=== PATIENT | female | born 1940 | race Caucasian/White ===

== ENCOUNTER → 2018-08-20 | Outpatient (CLI) | payer OTHER | LOC: M.ULTRA 14:00 | DX: N28.9 Disorder of kidney and ureter, unspecified (principal) ==

== ENCOUNTER 2019-09-15 13:06 | Inpatient (IN) | payer OTHER ==
[~2019-09-15] VITALS: Ht 172.7 cm; Wt 78.2 kg
--- NOTE | ~2019-09-15 | CON ---
[address] [address] CONSULTATION Name: MICHELLE VALERO Room: [address] IN M.R.#: [id number] Admission: 09/15/19 Attend Phys: Matt Ruiz Discharge: Date of : 42 Report #: [id number] THIS REPORT FOR: //name// cc: Gorge Dee Bruce R. DO ~ THIS REPORT FOR: //name// CC: Gorge Staples DATE OF SERVICE: 09/16/2019 NEPHROLOGY CONSULTATION CONSULTING PHYSICIAN: Dr. Matt Staples REASON FOR NEPHROLOGY CONSULTATION: Acute kidney injury and hypercalcemia. REASON FOR ADMISSION: Weakness, diarrhea and hypoglycemia. HISTORY OF PRESENT ILLNESS: This is a 78-year-old female with past medical history of Alzheimer's dementia, has a history of type 2 diabetes, hypertension, dyslipidemia, presented to the ER with altered mental status. EMS was called by the patient's daughter because the patient was weak at home and she had also been having diarrhea. When EMS arrived, her blood glucose was in 40s. She had a head CT done in the ER here showed a subacute CVA in left occipital and subinsular area. In addition, she was found to have a creatinine of 4.8. Her baseline creatinine is not known and a calcium was found to be 15.8. She was started on IV hydration with which her calcium and creatinine both are improving. She is awake this morning. She is oriented to place. She is oriented to year and she is oriented to self and looks like she does know who the president is, but is not able to tell me. She has been urinating. She has a Navarrete catheter which was placed yesterday in the ER and has had 1650 out overnight. She had a renal ultrasound, which was unremarkable. HOME MEDICATIONS: Include multivitamins, triamterene and hydrochlorothiazide, calcium and vitamin D3 as well as enalapril. She was also on metformin at home. I am not sure if she was taking any Tums or other calcium supplements or any NSAIDs. ALLERGIES: LATEX. REVIEW OF SYSTEMS: As mentioned in history of present illness, otherwise limited because of Alzheimer dementia. HOME MEDICATIONS: Include allopurinol, lovastatin, multivitamin, donepezil, [place] [address] CONSULTATION Name: MICHELLE VALERO Room: [address] IN .R.#: [id number] Admission: 09/15/19 Attend Phys: Matt Ruiz Discharge: Date of : 42 Report #: [id number] magnesium, enalapril, triamterene and hydrochlorothiazide, oxybutynin, duloxetine, aspirin, glimepiride, omega 3 fatty acids, calcium carbonate and vitamin D3. PAST MEDICAL AND SURGICAL HISTORY: Includes diabetes, hypertension, dyslipidemia, Alzheimer disease, left knee surgery. FAMILY HISTORY: Could not obtain from the patient. SOCIAL HISTORY: She lives at home, but we do not know much better social history. She does have a daughter. PHYSICAL EXAMINATION: VITAL SIGNS: Blood pressure is 107/44, respiratory rate is 17, pulse rate was 66, temperature was 35.7, pulse ox was 96%, she is on room air. GENERAL: She is awake and she is oriented to place, time and oriented to self. HEAD AND HEENT: Atraumatic, normocephalic. Normal conjunctivae. EARS, NOSE, AND THROAT: Normal ears and nose. Mucous membranes are dry. NECK: No JVD. CHEST: Bilateral diminished breath sounds posteriorly, but no crackles heard. CARDIOVASCULAR: S1, S2 normal. No murmur heard. ABDOMEN: Soft, nondistended, nontender. Bowel sounds are present. LOWER EXTREMITIES: There is no lower extremity edema. SKIN: Quite dry. Turgor is decreased. NEUROLOGICAL FUNCTION: She is moving all her extremities. She is not completely oriented. PSYCHIATRIC: Not able to assess. LABORATORY DATA: WBC 10.1, hemoglobin 12.8, platelet count is 233. Sodium 135, potassium 4.7, BUN is 46 and creatinine is 4.5, and PTH was 22. Lactic acid was 3.5, down to 2.8 and 25-hydroxy vitamin D was 61.6. CK was 36. Calcium was 15.8, now down to 13.7. Other labs are reviewed. IMAGING: Renal ultrasound, head CT and chest x-ray were reviewed. ASSESSMENT: 1. Acute kidney injury in the setting of intravascular volume depletion. She was hypotensive. She had hypercalcemia and she was on triamterene and hydrochlorothiazide at home along with enalapril. Her baseline creatinine is not known. We need to try to find that out but her creatinine was 4.8 on admission. UA only shows trace blood and renal ultrasound is within normal limits. 2. History of Alzheimer's dementia. I am not sure what her baseline mental status is like. 3. Subacute cerebrovascular accident, left occipital and subinsular. Primary team is managing that. [address] [address] CONSULTATION Name: MICHELLE VALERO Room: [address] IN [place].#: [id number] Admission: 09/15/19 Attend Phys: Matt Ruiz Discharge: Date of : 42 Report #: [id number] 4. Hypercalcemia. This is in the setting of intravascular volume depletion, use of hydrochlorothiazide, calcium, vitamin D3 supplements and multivitamins. 5. Hyperphosphatemia. This is in the setting of acute kidney injury. 6. Lactic acidosis because of metformin use at home and she was also hypotensive, it has been improving, it was 3.5 on admission. 7. Diarrhea at home. 8. History of hypertension, but mildly hypotensive. 9. Hypoglycemia because of prolonged circulation of oral hypoglycemic agents in the setting of renal insufficiency. PLAN: 1. With IV fluids, the calcium and creatinine are coming down, please try to find out her baseline creatinine and calcium levels. 2. Please decrease normal saline to 150 mL an hour. 3. Please change diet to renal diet. 4. Please avoid nephrotoxic agents and NSAIDs and continue to hold her multivitamin, triamterene/hydrochlorothiazide calcium, vitamin D3 as well as enalapril. 5. Strict I's and O's. 6. For hypercalcemia workup, I have further ordered 125 hydroxy vitamin D and a serum immunofixation, serum free light chain ratio and PTH related peptide. PTH was already reviewed 22 indicating this is not primary hyperparathyroidism and a 25-hydroxy vitamin D was 61, not in toxic range. 7. Check morning labs. We will continue to follow along with you. Echocardiogram was also reviewed Ejection fraction is 70% with grade 1 diastolic dysfunction. Discussed with the patient's nurses. By: 0941 [id number] Meza MD /nt
[2019-09-15] MEDS ORDERED: ALLOPURINOL 10100 M3 PO (13:26)
[2019-09-15] MEDS ORDERED: LOVASTATIN 20 M20 MG PO (13:26)
[2019-09-15] MEDS ORDERED: MAGNESIUM250 M1 PO (13:27)
[2019-09-15] MEDS ORDERED: MULTI VITAMIN1 EACH PO (13:27)
[2019-09-15] MEDS ORDERED: ARICEPT10 M1 PO (13:27)
[2019-09-15 13:28] VITALS: BP 117/47
[2019-09-15] MEDS ORDERED: VASOTEC5 MG PO (13:28)
[2019-09-15] MEDS ORDERED: OXYBUTYNIN 5 MG5 M2 PO (13:29)
[2019-09-15] MEDS ORDERED: TRIAMTERENE-HC1 EAC2 PO (13:29)
[2019-09-15] MEDS ORDERED: DRIZALMA SPRINK60 MG PO (13:29)
[2019-09-15] MEDS ORDERED: CHILDREN'S ASPI81 M1 PO (13:30)
[2019-09-15] MEDS ORDERED: AMARYL4 MG PO (13:30)
[2019-09-15] MEDS ORDERED: CALCIUM 600 +1 EAC8 PO (13:31)
[2019-09-15] MEDS ORDERED: FISH OIL 1,0001 EAC9 PO (13:31)
[2019-09-15 13:46] LABS: URINE BILIRUBIN NEGATIVE (Negative); URINE BLOOD TRACE (Negative); URINE CLARITY CLEAR; URINE COLOR YELLOW; URINE GLUCOSE-RANDOM NEGATIVE (Negative); URINE KETONES NEGATIVE (Negative); URINE LEUKOCYTES-REFLEX NEGATIVE (Negative); URINE NITRITE-REFLEX NEGATIVE (Negative); URINE PROTEIN NEGATIVE (Negative); URINE SPECIFIC GRAVITY 1.015 (1.005-1.030); URINE UROBILINOGEN 0.2 E.U./dl (0.2-1.0)
[2019-09-15 13:49] LABS: ABSOLUTE EOSINOPHILS 0.3 thou/uL (0.0-0.7); ABSOLUTE LYMPHOCYTES 1.4 thou/uL (0.8-5.3); ABSOLUTE MONOCYTES 0.5 thou/uL (0.0-1.2); BASOPHILS 0.3 %; HEMATOCRIT 38.7 % (37.0-47.0); HEMOGLOBIN 12.8 gm/dL (12.0-15.0); LYMPHOCYTES 13.5 %; MCH 31.9 pg (26.0-34.0); MCV 96.5 fL (80.0-100.0); MONOCYTES 4.7 %; NUCLEATED RBCS 0 /100WBC; PLATELET COUNT* 233 thou/uL (150-400); POLYS 78.5 %; RBC 4.01 mil/uL (4.20-5.00); RDW-CV 14.4 % (10.5-14.5); WBC 10.1 thou/uL (4.0-11.0)
[2019-09-15 13:54] LABS: APTT 26.3 Seconds (25.0-31.3)
[2019-09-15 14:06] LABS: ALBUMIN 3.6 g/dL (3.4-5.0); CREATININE 4.8 mg/dL (0.6-1.3); POTASSIUM 5.3 mmol/L (3.5-5.1); TOTAL BILIRUBIN 0.4 mg/dL (<0.1-1.0); TOTAL PROTEIN 7.4 g/dL (6.4-8.2)
[2019-09-15 14:08] LABS: CALCIUM 15.8 mg/dL (8.5-10.1)
[2019-09-15 15:11] VITALS: BP 111/55
[2019-09-15 15:29] LABS: CREATININE 4.7 mg/dL (0.6-1.3)
[2019-09-15 15:30] VITALS: BP 107/50
[2019-09-15 15:33] LABS: CALCIUM 14.5 mg/dL (8.5-10.1)
--- NOTE | 2019-09-15 15:41 | EKG ---
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
--- NOTE | 2019-09-15 16:22 | 2DMMODE ---
[place] [address] 2 D/M-MODE ECHOCARDIOGRAM Name: AJITMICHELLE HOOVER Room: [address] IN .R.#: [id number] Admission: 09/15/19 Attend Phys: Matt thomas Sa Discharge: Date of : 42 Date of Service: 09/15/19 1621 Report #: [id number] THIS REPORT FOR: cc: FAM - No family physician/PCP FAM - No family physician/PCP Angel Altman MD [facility] ~ APPROVED REPORT Study performed: 09/15/2019 15:26:22 EXAM: Comprehensive 2D, Doppler, and color-flow Echocardiogram Patient Location: In-Patient Room #: [facility] Status: routine BSA: 1.93 HR: 60 bpm BP: 107/50 mmHg Rhythm: NSR Other Information Study Quality: Good Indications CVA/TIA Echo Enhancing Agent Indication: Rule out Shunt Agent(s) / Amount(s) Used: Agitated Saline 10 cc 2D Dimensions IVSd: 13.45 (7-11mm) LVOT Diam: 20.42 (18-24mm) LVDd: 44.43 mm PWd: 10.41 (7-11mm) Ascending Ao: 30.60 (22-36mm) LVDs: 23.84 (25-40mm) Aortic Root: 33.32 mm Volumes Left Atrial Volume (Systole) LA ESV Index: 37.90 mL/m2 Aortic Valve AoV Peak Alexander.: 3.45 m/s AO Peak Gr.: 47.54 mmHg LVOT Max P.09 mmHg AO Mean Gr.: 30.49 mmHg LVOT Mean P.28 [place] [address] 2 D/M-MODE ECHOCARDIOGRAM Name: MARYLUMICHELLE E Room: [address] IN .R.#: [id number] Admission: 09/15/19 Attend Phys: Matt thomas Sa Discharge: Date of : 42 Date of Service: 09/15/19 1621 Report #: [id number] LVOT Max V: 1.01 m/s AO V2 VTI: 83.09 cm LVOT Mean V: 0.71 m/s KETURAH (VTI): 1.09 cm2 LVOT V1 VTI: 27.55 cm Mitral Valve MV Mean Gr.: 2.41 mmHg E/A Ratio: 0.73 MV Decel. Time: 359.17 ms MV E Max Alexander.: 0.84 m/s MV PHT: 104.16 ms MVA (PHT): 2.11 cm2 TDI E/Lateral E': 12.00 E/Medial E': 14.00 Medial E' Alexander.: 0.06 m/s Lateral E' Alexander.: 0.07 m/s Pulmonary Valve PV Peak Alexander.: 0.91 m/s PV Peak Gr.: 3.29 mmHg Tricuspid Valve RAP Estimate: 5.00 mmHg TR Peak Gr.: 23.54 mmHg RVSP: 28.00 mmHg PA Pressure: 28.00 mmHg Left Ventricle The left ventricle is normal size. There is normal LV segmental wall motion. Mild concentric left ventricular hypertrophy. Left ventricular systolic function is normal. LVEF is 70%. Grade I - abnormal relaxation pattern. Right Ventricle The right ventricle is normal size. The right ventricular systolic function is normal. Atria Left atrium is moderately dilated. The interatrial septum is intact with no evidence for an atrial septal defect. The right atrium size is normal. Aortic Valve Moderate aortic valve sclerosis. Trace aortic regurgitation. Moderate aortic stenosis. Mitral Valve Moderate mitral annular calcification. Mild mitral regurgitation. Mild to moderate [place] [address] 2 D/M-MODE ECHOCARDIOGRAM Name: MICHELLE VALERO Room: [address] IN ..#: [id number] Admission: 09/15/19 Attend Phys: Matt thomas Sa Discharge: Date of : 42 Date of Service: 09/15/19 1621 Report #: [id number] Tricuspid Valve The tricuspid valve is normal in structure. Trace tricuspid regurgitation. No pulmonary hypertension. Pulmonic Valve The pulmonary valve is normal in structure. There is no pulmonic valvular regurgitation. Great Vessels The aortic root is normal in size. IVC is normal in size and collapses >50% with inspiration. Pericardium There is no pericardial effusion. <Conclusion> The left ventricle is normal size. Mild concentric left ventricular hypertrophy. Left ventricular systolic function is normal. LVEF is 70%. Grade I - abnormal relaxation pattern. Left atrium is moderately dilated. Moderate aortic valve sclerosis. Trace aortic regurgitation. Moderate aortic stenosis. Mild mitral regurgitation. Trace tricuspid regurgitation. No pulmonary hypertension. The interatrial septum is intact with no evidence for an atrial septal defect. <ELECTRONICALLY SIGNED> By: Angel Altman MD, FACC 09/15/19 162 20 20 Angel Altman MD, FACC /INF
[2019-09-15] MEDS ORDERED: GLUCOPHAGE1000 MG PO (17:41)
[2019-09-15 19:50] VITALS: BP 110/55
[2019-09-16] VITALS (7 sets, daily range): BP systolic 99–127; BP diastolic 40–52
[2019-09-16 07:18] LABS: ALBUMIN 3.3 g/dL (3.4-5.0); ALKALINE PHOSPHATASE 50 U/L (46-116); ANION GAP 11 mmol/L (7-16); BUN 56 mg/dL (7-18); CHLORIDE 100 mmol/L (98-107); CHOLESTEROL 115 mg/dL (<200); CO2 24 mmol/L (21-32); CREATININE 4.5 mg/dL (0.6-1.3); GLUCOSE 47 mg/dL (70-99); HDL CHOLESTEROL 44 mg/dL (>40); LDL CHOLESTEROL 51 mg/dL (<100); POTASSIUM 4.7 mmol/L (3.5-5.1); SGOT 24 U/L (15-37); SGPT 22 U/L (30-65); SODIUM 135 mmol/L (136-145); TC:HDL 2.6 Ratio (Not establshd); TOTAL BILIRUBIN 0.2 mg/dL (<0.1-1.0); TOTAL PROTEIN 6.4 g/dL (6.4-8.2); TRIGLYCERIDE 101 mg/dL (<150); VLDL 20 mg/dL (<40)
[2019-09-16 07:20] LABS: CALCIUM 13.7 mg/dL (8.5-10.1)
[2019-09-16 07:30] LABS: SERUM ASSESSMENT Clear
[2019-09-17] VITALS: BP 112/51
[2019-09-17 02:07] LABS: GLYCOHEMOGLOBIN (HGB A1C) 5.4 % (4.8-5.6)
[2019-09-17 04:00] VITALS: BP 113/49
[2019-09-17 08:10] VITALS: BP 117/48
[2019-09-17 12:08] LABS: ABSOLUTE EOSINOPHILS 0.5 thou/uL (0.0-0.7); ABSOLUTE LYMPHOCYTES 1.2 thou/uL (0.8-5.3); ABSOLUTE MONOCYTES 0.8 thou/uL (0.0-1.2); ABSOLUTE NEUTROPHILS 7.9 thou/uL (1.6-8.1); BASOPHILS 0.5 %; EOSINOPHILS 4.7 %; HEMATOCRIT 37.8 % (37.0-47.0); HEMOGLOBIN 12.6 gm/dL (12.0-15.0); LYMPHOCYTES 11.3 %; MCH 31.8 pg (26.0-34.0); MCHC 33.2 g/dL (28.0-37.0); MCV 95.8 fL (80.0-100.0); MONOCYTES 7.5 %; MPV 8.5 fl. (7.2-11.1); NUCLEATED RBCS 0 /100WBC; PLATELET COUNT* 235 thou/uL (150-400); RBC 3.95 mil/uL (4.20-5.00); WBC 10.4 thou/uL (4.0-11.0)
[2019-09-17 12:23] LABS: ALBUMIN 3.5 g/dL (3.4-5.0); CREATININE 4.1 mg/dL (0.6-1.3); MAGNESIUM 2.4 mg/dL (1.8-2.4); PHOSPHORUS* 2.8 mg/dL (2.5-4.9); POTASSIUM 3.7 mmol/L (3.5-5.1); TOTAL BILIRUBIN 0.4 mg/dL (<0.1-1.0); TOTAL PROTEIN 7.4 g/dL (6.4-8.2)
[2019-09-17 12:25] LABS: CALCIUM 12.3 mg/dL (8.5-10.1)
[2019-09-17 13:36] VITALS: BP 101/48
[2019-09-17 16:51] VITALS: BP 118/54
[2019-09-17 20:10] VITALS: BP 121/58
[2019-09-18 00:37] VITALS: BP 101/51
[2019-09-18 04:26] VITALS: BP 108/48
[2019-09-18 05:01] LABS: CREATININE 3.9 mg/dL (0.6-1.3); POTASSIUM 3.3 mmol/L (3.5-5.1); TOTAL BILIRUBIN 0.3 mg/dL (<0.1-1.0); TOTAL PROTEIN 6.7 g/dL (6.4-8.2)
[2019-09-18 07:45] VITALS: BP 114/55
[2019-09-18 12:00] VITALS: BP 113/60
[2019-09-18 20:23] VITALS: BP 109/65
[2019-09-19] VITALS (7 sets, daily range): BP systolic 93–114; BP diastolic 43–56
[2019-09-19 05:25] LABS: ALBUMIN 2.9 g/dL (3.4-5.0); CALCIUM 10.3 mg/dL (8.5-10.1); TOTAL BILIRUBIN 0.3 mg/dL (<0.1-1.0); TOTAL PROTEIN 6.6 g/dL (6.4-8.2)
[2019-09-19 05:52] LABS: POTASSIUM 2.9 mmol/L (3.5-5.1)
[2019-09-20 04:00] VITALS: BP 99/51
[2019-09-20 05:06] LABS: HEMATOCRIT 31.3 % (37.0-47.0); MCH 32.4 pg (26.0-34.0); MCV 95.6 fL (80.0-100.0); MPV 8.3 fl. (7.2-11.1); RBC 3.28 mil/uL (4.20-5.00); RDW-CV 14.5 % (10.5-14.5); WBC 8.6 thou/uL (4.0-11.0)
[2019-09-20 05:50] LABS: HEMOGLOBIN 10.6 gm/dL (12.0-15.0)
[2019-09-20 05:59] LABS: ALBUMIN 2.6 g/dL (3.4-5.0); CALCIUM 9.3 mg/dL (8.5-10.1); CREATININE 2.6 mg/dL (0.6-1.3); MAGNESIUM 1.4 mg/dL (1.8-2.4); PHOSPHORUS* 2.4 mg/dL (2.5-4.9); TOTAL BILIRUBIN 0.3 mg/dL (<0.1-1.0); TOTAL PROTEIN 6.1 g/dL (6.4-8.2)
[2019-09-20 12:02] VITALS: BP 111/44
[2019-09-20 14:01] LABS: MAGNESIUM 1.5 mg/dL (1.8-2.4)
[2019-09-20 14:02] LABS: POTASSIUM 4.3 mmol/L (3.5-5.1)
[2019-09-20 18:45] VITALS: BP 104/56
[2019-09-20 20:00] VITALS: BP 125/56
[2019-09-21] VITALS: BP 100/42
[2019-09-21 01:00] LABS: HEMATOCRIT 31.2 % (37.0-47.0); HEMOGLOBIN 10.7 gm/dL (12.0-15.0); MCH 32.4 pg (26.0-34.0); MCHC 34.2 g/dL (28.0-37.0); MCV 94.6 fL (80.0-100.0); MPV 7.7 fl. (7.2-11.1); RBC 3.3 mil/uL (4.20-5.00); RDW-CV 14.5 % (10.5-14.5); WBC 8.2 thou/uL (4.0-11.0)
[2019-09-21 01:22] LABS: ALBUMIN 2.7 g/dL (3.4-5.0); CALCIUM 9.4 mg/dL (8.5-10.1); CREATININE 2.3 mg/dL (0.6-1.3); MAGNESIUM 2.1 mg/dL (1.8-2.4); PHOSPHORUS* 1.7 mg/dL (2.5-4.9); POTASSIUM 4.1 mmol/L (3.5-5.1); TOTAL BILIRUBIN 0.3 mg/dL (<0.1-1.0); TOTAL PROTEIN 6.4 g/dL (6.4-8.2)
[2019-09-21 04:32] VITALS: BP 117/55
[2019-09-21 08:00] VITALS: BP 123/69
[2019-09-21 13:08] LABS: GLOBULIN TOTAL 3.4 g/dL (2.2-3.9); M-SPIKE Not Observed g/dL (Not Observed)
[2019-09-21 16:10] VITALS: BP 98/47
[2019-09-21 19:30] VITALS: BP 92/40
[2019-09-22 00:35] VITALS: BP 106/59
[2019-09-22 03:56] VITALS: BP 95/53
[2019-09-22 04:32] LABS: CALCIUM 8.9 mg/dL (8.5-10.1); POTASSIUM 3.3 mmol/L (3.5-5.1)
[2019-09-22 04:33] LABS: ALBUMIN 2.9 g/dL (3.4-5.0); CALCIUM 9.4 mg/dL (8.5-10.1); MAGNESIUM 1.7 mg/dL (1.8-2.4); PHOSPHORUS* 2.2 mg/dL (2.5-4.9); POTASSIUM 3.3 mmol/L (3.5-5.1)
[2019-09-22 08:00] VITALS: BP 105/70
[2019-09-22 12:37] VITALS: BP 105/70
[2019-09-22 14:08] LABS: URINE PROTEIN (MG/DL) 39.3 mg/dL (Not Estab.)
[2019-09-22 16:55] VITALS: BP 105/70
[2019-09-22 21:07] LABS: IgA 325 mg/dL (64-422); IgG 566 mg/dL (586-1602); IgM 34 mg/dL (26-217)
== END 2019-09-22 13:30 | disposition home health service (06) | DRG 682 ==
LOC: M.ERS 13:06 → M.TBA-ER 14:50 → M.2W 14:50
PROVIDERS: Family Medicine; Internal Medicine; Internal Medicine Nephrology; Psychiatry & Neurology Neurology; ADMIT Family Medicine
DX: N17.0 Acute kidney failure with tubular necrosis (principal); G08 Intracranial and intraspinal phlebitis and thrombophlebitis; G92 Toxic encephalopathy; E87.1 Hypo-osmolality and hyponatremia; E87.2 Acidosis; N18.4 Chronic kidney disease, stage 4 (severe); G30.9 Alzheimer's disease, unspecified; E86.0 Dehydration; E78.5 Hyperlipidemia, unspecified; E83.52 Hypercalcemia; E86.9 Volume depletion, unspecified; E83.39 Other disorders of phosphorus metabolism; E11.649 Type 2 diabetes mellitus with hypoglycemia without coma; E11.22 Type 2 diabetes mellitus with diabetic chronic kidney disease; I12.9 Hypertensive chronic kidney disease with stage 1 through stage 4 chronic kidney disease, or unspecified chronic kidney disease; T50.905A Adverse effect of unspecified drugs, medicaments and biological substances, initial encounter; F02.80 Dementia in other diseases classified elsewhere, unspecified severity, without behavioral disturbance, psychotic disturbance, mood disturbance, and anxiety; Z90.49 Acquired absence of other specified parts of digestive tract; Z79.899 Other long term (current) drug therapy; Z79.84 Long term (current) use of oral hypoglycemic drugs; Z79.82 Long term (current) use of aspirin; Z91.040 Latex allergy status; Y92.89 Other specified places as the place of occurrence of the external cause

== ENCOUNTER 2019-12-23 13:31 | Inpatient (IN) | payer OTHER ==
[~2019-12-23] VITALS: Ht 172.7 cm; Wt 86.6 kg
[~2019-12-23 13:31] MED LIST: ALLOPURINOL 10100 M3 PO; AMARYL4 MG PO; ARICEPT10 M1 PO; CALCIUM 600 +1 EAC8 PO; CHILDREN'S ASPI81 M1 PO; DRIZALMA SPRINK60 MG PO; FISH OIL 1,0001 EAC9 PO; GLUCOPHAGE1000 MG PO; LOVASTATIN 20 M20 MG PO; MAGNESIUM250 M1 PO; MULTI VITAMIN1 EACH PO; OXYBUTYNIN 5 MG5 M2 PO; TRIAMTERENE-HC1 EAC2 PO; VASOTEC5 MG PO
[2019-12-23 13:56] VITALS: BP 120/57
[2019-12-23] MEDS ORDERED: MELATONIN10 M3 PO (14:01)
[2019-12-23 14:36] LABS: ABSOLUTE EOSINOPHILS 0.4 thou/uL (0.0-0.7); ABSOLUTE LYMPHOCYTES 1.6 thou/uL (0.8-5.3); ABSOLUTE MONOCYTES 0.9 thou/uL (0.0-1.2); ABSOLUTE NEUTROPHILS 7.1 thou/uL (1.6-8.1); BASOPHILS 0.4 %; EOSINOPHILS 3.9 %; HEMATOCRIT 35.3 % (37.0-47.0); HEMOGLOBIN 11.9 gm/dL (12.0-15.0); LYMPHOCYTES 16.1 %; MCH 30.7 pg (26.0-34.0); MCHC 33.6 g/dL (28.0-37.0); MCV 91.4 fL (80.0-100.0); MONOCYTES 9.2 %; MPV 7.3 fl. (7.2-11.1); NUCLEATED RBCS 0 /100WBC; PLATELET COUNT* 195 thou/uL (150-400); POLYS 70.4 %; RBC 3.87 mil/uL (4.20-5.00); RDW-CV 14.8 % (10.5-14.5); WBC 10.1 thou/uL (4.0-11.0)
[2019-12-23 14:38] LABS: ICTOTEST (BILI CONFIRMATORY) Negative (Negative); URINE BILIRUBIN 1+ (Negative); URINE BLOOD NEGATIVE (Negative); URINE CLARITY CLEAR; URINE COLOR YELLOW; URINE GLUCOSE-RANDOM 2+ (Negative); URINE KETONES NEGATIVE (Negative); URINE LEUKOCYTES-REFLEX NEGATIVE (Negative); URINE NITRITE-REFLEX POSITIVE (Negative); URINE PROTEIN NEGATIVE (Negative); URINE SPECIFIC GRAVITY 1.025 (1.005-1.030); URINE UROBILINOGEN 0.2 E.U./dl (0.2-1.0)
[2019-12-23 14:39] LABS: CASTS None Seen /LPF (None Seen); CRYSTALS None Seen /LPF (None Seen); SQUAMOUS 0-3 Few /LPF (0-3); URINE RBC 3-10 Few /HPF (0-2); URINE WBC-REFLEX 6-15 Few /HPF (0-5)
[2019-12-23 14:49] LABS: APTT 27.5 Seconds (25.0-31.3); PROTIME 10.7 Seconds (9.20-11.50)
[2019-12-23 14:54] LABS: CALCIUM 8.7 mg/dL (8.5-10.1); CREATININE 0.9 mg/dL (0.6-1.3); POTASSIUM 3.1 mmol/L (3.5-5.1)
[2019-12-23 14:58] LABS: ALBUMIN 2.9 g/dL (3.4-5.0); TOTAL BILIRUBIN 0.3 mg/dL (<0.1-1.0); TOTAL PROTEIN 6.7 g/dL (6.4-8.2)
[2019-12-23 18:09] VITALS: BP 125/61
[2019-12-23 18:17] VITALS: BP 133/61
[2019-12-23 21:12] VITALS: BP 118/48
[2019-12-24 04:59] LABS: CALCIUM 8.9 mg/dL (8.5-10.1); CREATININE 0.8 mg/dL (0.6-1.3); POTASSIUM 3.8 mmol/L (3.5-5.1)
[2019-12-24 07:49] VITALS: BP 127/62
--- NOTE | 2019-12-24 13:20 | EKG ---
[place] [address] ELECTROCARDIOGRAM REPORT Name: MICHELLE VALERO Room: [address] IN M.R.#: [id number] Admission: 12/23/19 Attend Phys: Darvin Timmons Discharge: Date of : 42 Date of Service: 12/23/19 1445 Report #: [id number] THIS REPORT FOR: //name// [facility] ED Test Date: 2019-12-23 Test Time: 14:45:48 Pat Name: MICHELLE VALERO Department: Room: [facility] Gender: F [employer]: : 1940 Requested By: Scarlett Chambers Order Number: [id number] MD: Angel Altman Measurements Intervals [place] Rate: 70 P: 44 TN: 173 QRS: -3 QRSD: 100 T: 45 QT: 396 QTc: 428 Interpretive Statements Sinus rhythm Ventricular premature complex Compared to ECG 09/15/2019 13:12:46 Ventricular premature complex(es) now present Electronically Signed On 12-24-2019 13:20:10 CDT by Angel Altman [email or web address] <ELECTRONICALLY SIGNED> By: Angel Altman MD, FACC 12/24/19 1320 1445 1445 Angel Altman MD, [facility] /EPI
[2019-12-24 15:32] VITALS: BP 124/57
[2019-12-24 19:30] VITALS: BP 117/59
[2019-12-25] VITALS: BP 114/53
[2019-12-25 02:06] LABS: GLYCOHEMOGLOBIN (HGB A1C) 7.2 % (4.8-5.6)
[2019-12-25 05:17] LABS: ANION GAP 10 mmol/L (7-16); BUN 11 mg/dL (7-18); CALCIUM 8.7 mg/dL (8.5-10.1); CHLORIDE 108 mmol/L (98-107); CHOLESTEROL 139 mg/dL (<200); CO2 24 mmol/L (21-32); GLUCOSE 118 mg/dL (70-99); HDL CHOLESTEROL 50 mg/dL (>40); LDL CHOLESTEROL 83 mg/dL (<100); POTASSIUM 3.5 mmol/L (3.5-5.1); SODIUM 142 mmol/L (136-145); TC:HDL 2.8 Ratio (Not establshd); TRIGLYCERIDE 31 mg/dL (<150); VLDL 6 mg/dL (<40)
[2019-12-25 05:26] LABS: SERUM ASSESSMENT CLEAR
[2019-12-25 07:10] VITALS: BP 114/55
[2019-12-25 13:30] LABS: ABSOLUTE BASOPHILS 0.1 thou/uL (0.0-0.2); ABSOLUTE EOSINOPHILS 0.5 thou/uL (0.0-0.7); ABSOLUTE LYMPHOCYTES 1.5 thou/uL (0.8-5.3); ABSOLUTE MONOCYTES 0.6 thou/uL (0.0-1.2); ABSOLUTE NEUTROPHILS 5.2 thou/uL (1.6-8.1); BASOPHILS 0.7 %; HEMATOCRIT 38.1 % (37.0-47.0); HEMOGLOBIN 12.6 gm/dL (12.0-15.0); LYMPHOCYTES 19.5 %; MCH 30.4 pg (26.0-34.0); MCV 92.2 fL (80.0-100.0); MONOCYTES 7.5 %; MPV 7.6 fl. (7.2-11.1); NUCLEATED RBCS 0 /100WBC; PLATELET COUNT* 212 thou/uL (150-400); POLYS 66.3 %; RBC 4.13 mil/uL (4.20-5.00); RDW-CV 14.9 % (10.5-14.5); WBC 7.9 thou/uL (4.0-11.0)
[2019-12-25 15:30] VITALS: BP 137/64
[2019-12-26] VITALS: BP 134/52
[2019-12-26 03:57] LABS: ABSOLUTE EOSINOPHILS 0.5 thou/uL (0.0-0.7); ABSOLUTE LYMPHOCYTES 1.6 thou/uL (0.8-5.3); ABSOLUTE MONOCYTES 0.6 thou/uL (0.0-1.2); ABSOLUTE NEUTROPHILS 5.3 thou/uL (1.6-8.1); BASOPHILS 0.6 %; EOSINOPHILS 6.6 %; LYMPHOCYTES 20.2 %; MCH 30.6 pg (26.0-34.0); MCHC 33.3 g/dL (28.0-37.0); MCV 91.8 fL (80.0-100.0); MONOCYTES 7.2 %; MPV 7.5 fl. (7.2-11.1); NUCLEATED RBCS 0 /100WBC; PLATELET COUNT* 200 thou/uL (150-400); POLYS 65.4 %; RBC 3.93 mil/uL (4.20-5.00); WBC 8.1 thou/uL (4.0-11.0)
[2019-12-26 07:00] VITALS: BP 151/85
[2019-12-26] MEDS ORDERED: CIPRO500 MG PO (12:02)
[2019-12-26] MEDS ORDERED: FLAGYL500 M1 PO (12:02)
[2019-12-26 13:59] LABS: CALCIUM 8.9 mg/dL (8.5-10.1); POTASSIUM 3.6 mmol/L (3.5-5.1); TOTAL BILIRUBIN 0.3 mg/dL (<0.1-1.0); TOTAL PROTEIN 7.1 g/dL (6.4-8.2)
[2019-12-26 16:00] VITALS: BP 129/62
[2019-12-26 21:00] VITALS: BP 133/66
[2019-12-26 23:36] LABS: URINE BILIRUBIN NEGATIVE (Negative); URINE BLOOD NEGATIVE (Negative); URINE CLARITY CLEAR; URINE COLOR YELLOW; URINE GLUCOSE-RANDOM NEGATIVE (Negative); URINE KETONES NEGATIVE (Negative); URINE LEUKOCYTES NEGATIVE (Negative); URINE NITRITE NEGATIVE (Negative); URINE PROTEIN NEGATIVE (Negative); URINE SPECIFIC GRAVITY <= 1.005 (1.005-1.030); URINE UROBILINOGEN 0.2 E.U./dl (0.2-1.0)
[2019-12-27 04:09] LABS: CREATININE 0.9 mg/dL (0.6-1.3); POTASSIUM 3.4 mmol/L (3.5-5.1)
[2019-12-27 07:05] VITALS: BP 136/73
[2019-12-27 15:28] VITALS: BP 136/73
[2019-12-27 15:30] VITALS: BP 136/73
[2019-12-27 15:31] VITALS: BP 136/73
[2019-12-27 15:52] VITALS: BP 136/73
== END 2019-12-27 15:55 | disposition home health service (06) | DRG 392 ==
LOC: M.ERS 13:31 → M.ORTHSURG 16:37 → M.TBA-ER 16:37 → M.ORTHSURG 18:04
PROVIDERS: Nurse Practitioner Family; ADMIT Internal Medicine; ATTEND Internal Medicine
DX: K57.92 Diverticulitis of intestine, part unspecified, without perforation or abscess without bleeding (principal); N30.01 Acute cystitis with hematuria; E44.0 Moderate protein-calorie malnutrition; N17.9 Acute kidney failure, unspecified; E11.9 Type 2 diabetes mellitus without complications; I10 Essential (primary) hypertension; B96.20 Unspecified Escherichia coli [E. coli] as the cause of diseases classified elsewhere; G30.9 Alzheimer's disease, unspecified; F02.80 Dementia in other diseases classified elsewhere, unspecified severity, without behavioral disturbance, psychotic disturbance, mood disturbance, and anxiety; Z20.828 Contact with and (suspected) exposure to other viral communicable diseases; M10.9 Gout, unspecified; Z79.899 Other long term (current) drug therapy; Z79.82 Long term (current) use of aspirin; Z90.49 Acquired absence of other specified parts of digestive tract; Z91.040 Latex allergy status

== ENCOUNTER 2020-01-26 17:55 | Inpatient (IN) | payer OTHER ==
[~2020-01-26] VITALS: Ht 172.7 cm; Wt 75.3 kg
[~2020-01-26 17:55] MED LIST changes: +CIPRO500 MG PO; +FLAGYL500 M1 PO; +MELATONIN10 M3 PO
[2020-01-26 18:18] VITALS: BP 138/78
[2020-01-26 19:27] LABS: CALCIUM 8.7 mg/dL (8.5-10.1); CREATININE 0.9 mg/dL (0.6-1.3)
[2020-01-26 19:33] LABS: ALBUMIN 2.7 g/dL (3.4-5.0); TOTAL BILIRUBIN 0.3 mg/dL (<0.1-1.0)
[2020-01-26 19:38] LABS: ABSOLUTE EOSINOPHILS 0.1 thou/uL (0.0-0.7); ABSOLUTE MONOCYTES 0.8 thou/uL (0.0-1.2); BASOPHILS 0.4 %; EOSINOPHILS 1.8 %; HEMATOCRIT 38.9 % (37.0-47.0); HEMOGLOBIN 12.9 gm/dL (12.0-15.0); LYMPHOCYTES 17.4 %; MCH 28.9 pg (26.0-34.0); MCHC 33.3 g/dL (28.0-37.0); MCV 86.9 fL (80.0-100.0); MONOCYTES 13.6 %; NUCLEATED RBCS 0 /100WBC; PLATELET COUNT* 163 thou/uL (150-400); POLYS 66.8 %; POTASSIUM 2.9 mmol/L (3.5-5.1); RBC 4.47 mil/uL (4.20-5.00); RDW-CV 15.7 % (10.5-14.5)
[2020-01-26 22:00] VITALS: BP 125/59
[2020-01-26 22:28] LABS: URINE BILIRUBIN NEGATIVE (Negative); URINE BLOOD NEGATIVE (Negative); URINE CLARITY CLEAR; URINE COLOR YELLOW; URINE GLUCOSE-RANDOM NEGATIVE (Negative); URINE KETONES TRACE (Negative); URINE LEUKOCYTES-REFLEX NEGATIVE (Negative); URINE NITRITE-REFLEX NEGATIVE (Negative); URINE PROTEIN TRACE (Negative); URINE SPECIFIC GRAVITY 1.015 (1.005-1.030); URINE UROBILINOGEN 0.2 E.U./dl (0.2-1.0)
[2020-01-27] VITALS (7 sets, daily range): BP systolic 93–133; BP diastolic 60–83
--- NOTE | 2020-01-27 08:22 | EKG ---
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: ILIR : 1940 Requested By: Scarlett Chambers Order Number: [id number] MD: Nicola Guzman Measurements Intervals [place] Rate: 87 P: 33 SC: 165 QRS: -5 QRSD: 99 T: 27 QT: 395 QTc: 476 Interpretive Statements Sinus rhythm Probable left atrial enlargement Left ventricular hypertrophy Anterior ST elevation, probably due to LVH Compared to ECG 12/23/2019 14:45:48 Left ventricular hypertrophy now present Ventricular premature complex(es) no longer present Electronically Signed On 01-27-2020 8:22:15 CDT by Nicola Guzman [email or web address] <ELECTRONICALLY SIGNED> By: Nicola Guzman MD, [facility] 01/27/20821 31 31 Nicola Guzman MD, [facility] /EPI
[2020-01-27 10:09] LABS: HEMATOCRIT 35.2 % (37.0-47.0); HEMOGLOBIN 11.8 gm/dL (12.0-15.0); MCH 29.2 pg (26.0-34.0); MCHC 33.5 g/dL (28.0-37.0); MCV 87.1 fL (80.0-100.0); MPV 7.8 fl. (7.2-11.1); RBC 4.04 mil/uL (4.20-5.00); RDW-CV 15.5 % (10.5-14.5)
[2020-01-27 10:10] LABS: CALCIUM 7.6 mg/dL (8.5-10.1); CREATININE 0.8 mg/dL (0.6-1.3); POTASSIUM 3.2 mmol/L (3.5-5.1)
[2020-01-28] VITALS: BP 131/69
[2020-01-28 04:00] VITALS: BP 123/65
[2020-01-28 05:05] LABS: HEMATOCRIT 34.8 % (37.0-47.0); HEMOGLOBIN 11.8 gm/dL (12.0-15.0); MCH 29.4 pg (26.0-34.0); MCHC 33.9 g/dL (28.0-37.0); MCV 86.8 fL (80.0-100.0); MPV 7.1 fl. (7.2-11.1); RBC 4.01 mil/uL (4.20-5.00); RDW-CV 15.3 % (10.5-14.5); WBC 5.4 thou/uL (4.0-11.0)
[2020-01-28 06:21] LABS: ALBUMIN 2.3 g/dL (3.4-5.0); CALCIUM 8.2 mg/dL (8.5-10.1); CREATININE 0.7 mg/dL (0.6-1.3); MAGNESIUM 1.6 mg/dL (1.8-2.4); POTASSIUM 3.7 mmol/L (3.5-5.1); TOTAL BILIRUBIN 0.3 mg/dL (<0.1-1.0); TOTAL PROTEIN 6.1 g/dL (6.4-8.2)
[2020-01-28 08:00] VITALS: BP 118/73
[2020-01-28 20:00] VITALS: BP 137/78
[2020-01-29] VITALS: BP 128/80
[2020-01-29 05:25] LABS: HEMATOCRIT 38.9 % (37.0-47.0); HEMOGLOBIN 12.8 gm/dL (12.0-15.0); MCH 29.2 pg (26.0-34.0); MCHC 32.8 g/dL (28.0-37.0); MCV 88.9 fL (80.0-100.0); RBC 4.38 mil/uL (4.20-5.00); RDW-CV 15.7 % (10.5-14.5); WBC 6.9 thou/uL (4.0-11.0)
[2020-01-29 06:15] LABS: ALBUMIN 2.5 g/dL (3.4-5.0); CALCIUM 8.2 mg/dL (8.5-10.1); CREATININE 0.7 mg/dL (0.6-1.3); MAGNESIUM 1.5 mg/dL (1.8-2.4); POTASSIUM 3.9 mmol/L (3.5-5.1); TOTAL BILIRUBIN 0.4 mg/dL (<0.1-1.0); TOTAL PROTEIN 5.9 g/dL (6.4-8.2)
[2020-01-29 08:00] VITALS: BP 163/78
[2020-01-29 09:25] VITALS: BP 117/60
[2020-01-29 16:00] VITALS: BP 122/61
[2020-01-29 19:40] VITALS: BP 118/69
[2020-01-30 04:02] LABS: HEMATOCRIT 36.5 % (37.0-47.0); HEMOGLOBIN 12.3 gm/dL (12.0-15.0); MCH 28.8 pg (26.0-34.0); MCHC 33.7 g/dL (28.0-37.0); MCV 85.5 fL (80.0-100.0); MPV 6.7 fl. (7.2-11.1); RBC 4.27 mil/uL (4.20-5.00); RDW-CV 15.4 % (10.5-14.5); WBC 7.1 thou/uL (4.0-11.0)
[2020-01-30 04:13] LABS: CALCIUM 8.2 mg/dL (8.5-10.1); CREATININE 0.8 mg/dL (0.6-1.3); POTASSIUM 3.2 mmol/L (3.5-5.1)
[2020-01-30 07:20] VITALS: BP 125/70
[2020-01-30 16:46] VITALS: BP 112/53
[2020-01-30 18:15] LABS: MAGNESIUM 1.7 mg/dL (1.8-2.4)
[2020-01-30 18:16] LABS: POTASSIUM 4.3 mmol/L (3.5-5.1)
[2020-01-30 20:00] VITALS: BP 127/58
[2020-01-31 07:20] VITALS: BP 103/55
[2020-01-31 16:35] VITALS: BP 130/61
[2020-01-31 20:00] VITALS: BP 111/63
[2020-02-01 03:21] LABS: HEMATOCRIT 36.2 % (37.0-47.0); HEMOGLOBIN 12.2 gm/dL (12.0-15.0); MCH 28.8 pg (26.0-34.0); MCHC 33.8 g/dL (28.0-37.0); MCV 85.2 fL (80.0-100.0); MPV 7.3 fl. (7.2-11.1); RBC 4.25 mil/uL (4.20-5.00); RDW-CV 15.7 % (10.5-14.5); WBC 8.7 thou/uL (4.0-11.0)
[2020-02-01 04:01] LABS: ALBUMIN 2.1 g/dL (3.4-5.0); CALCIUM 8.5 mg/dL (8.5-10.1); CREATININE 0.7 mg/dL (0.6-1.3); MAGNESIUM 1.4 mg/dL (1.8-2.4); POTASSIUM 3.6 mmol/L (3.5-5.1); TOTAL BILIRUBIN 0.4 mg/dL (<0.1-1.0); TOTAL PROTEIN 6.3 g/dL (6.4-8.2)
[2020-02-01 07:30] VITALS: BP 102/51
[2020-02-01 16:00] VITALS: BP 114/57
[2020-02-01 20:16] VITALS: BP 112/60
[2020-02-02 04:10] LABS: HEMATOCRIT 35.7 % (37.0-47.0); HEMOGLOBIN 12.1 gm/dL (12.0-15.0); MCH 28.9 pg (26.0-34.0); MCHC 33.9 g/dL (28.0-37.0); MCV 85.3 fL (80.0-100.0); MPV 7.4 fl. (7.2-11.1); RBC 4.19 mil/uL (4.20-5.00); RDW-CV 16.2 % (10.5-14.5); WBC 8.8 thou/uL (4.0-11.0)
[2020-02-02 04:17] LABS: CREATININE 0.8 mg/dL (0.6-1.3); MAGNESIUM 1.8 mg/dL (1.8-2.4); POTASSIUM 3.6 mmol/L (3.5-5.1)
[2020-02-02 07:35] VITALS: BP 138/67
[2020-02-02] MEDS ORDERED: AMOX TR-K CLV1 EAC4 PO (09:44)
[2020-02-02] MEDS ORDERED: FLUCONAZOLE 10100 MG PO (09:44)
[2020-02-02] MEDS ORDERED: ACIDOPHILUS1 EAC4 PO (09:44)
[2020-02-02] MEDS ORDERED: COLESTID1 GM PO (09:44)
[2020-02-02] MEDS ORDERED: BACITRACIN ZINC14 GM TOP (09:44)
[2020-02-02] MEDS ORDERED: NYSTATIN15 G1 TOP (09:44)
[2020-02-02 11:58] VITALS: BP 138/67
== END 2020-02-02 15:35 | disposition home health service (06) | DRG 372 ==
LOC: M.ERS 17:55 → M.TBA-ER 21:51 → M.3W 21:51 → M.2W 21:51 → M.3W 01-29 09:15
PROVIDERS: Internal Medicine; Nurse Practitioner Family; ADMIT Family Medicine; ATTEND Family Medicine
DX: A04.9 Bacterial intestinal infection, unspecified (principal); E44.1 Mild protein-calorie malnutrition; B37.49 Other urogenital candidiasis; J02.9 Acute pharyngitis, unspecified; E87.6 Hypokalemia; E86.0 Dehydration; E11.9 Type 2 diabetes mellitus without complications; E78.5 Hyperlipidemia, unspecified; I10 Essential (primary) hypertension; G30.9 Alzheimer's disease, unspecified; F02.80 Dementia in other diseases classified elsewhere, unspecified severity, without behavioral disturbance, psychotic disturbance, mood disturbance, and anxiety; L03.011 Cellulitis of right finger; M10.9 Gout, unspecified; Z20.828 Contact with and (suspected) exposure to other viral communicable diseases; Z79.82 Long term (current) use of aspirin; Z79.899 Other long term (current) drug therapy; Z91.040 Latex allergy status; Z68.25 Body mass index [BMI] 25.0-25.9, adult